=== PATIENT | female | born 1995 ===

== ENCOUNTER 2021-10-23 15:59 | Inpatient (IN) | payer SELFPAY ==
[2021-10-23] MEDS ORDERED: OXYTOCIN DRIP 30,000 MILLIUNITS/500 ML BAG IV ONE ×2 (16:38→17:11)
[2021-10-23] MEDS ORDERED: OXYTOCIN 10 UNIT/1 ML INJ ONE (16:39)
[2021-10-23] MEDS ORDERED: miSOPROStol 200 MCG TAB ONE (17:08)
--- NOTE | 2021-10-23 17:37 | History and Physical Report ---
History of Present Illness Date of examination: 10/23/21 Date of admission: 10/23/21 16:00 Chief complaint: ctx History of present illness: at 39.2wks by LMP c/w [place]/S. Nurse called me stating pt is from [facility]. Pt delivered precipitously by the time I arrived and when I did history and physical, and questioned the pt already delivered, she stated she had her records. Pt denied headache and gave history of laboring at home, denied vag bleed and SROM here at [facility]. pt admitted to movement Past History Past Medical History: other ( records not clear (poor print) ?uterine fiborid and abnormal pap with ASCUS) Past Surgical History: no surgical history Social history: no significant social history - Obstetrical History Expected Date of Delivery: 10/28/21 Actual Gestation: 39 Week(s) 2 Day(s) : 5 Hx # Term Pregnancies: 4 Number of Living Children: 4 Review of Systems All systems: negative (ctx per nurse report) - Vital Signs Vital signs: Vital Signs Pulse Pulse Ox 70 98 10/23/21 16:56 10/23/21 16:56 Temp Pulse Resp BP Pulse Ox 82 97 10/23/21 17:21 10/23/21 17:21 - Physical Exam Breasts: Positive: deferred Cardiovascular: Regular rate Lungs: Positive: Normal air movement Abdomen: Positive: soft Genitourinary (Female): Positive: normal external genitalia Vagina: Positive: normal moisture Uterus: Positive: enlarged (Fundus 2cm above umbilicus) - Obstetrical FHR: other (none) Uterine Contraction Monitor Mode: Palpation Cervical Dilatation: 10 (per nurse in triage) station: delivered in bed immediately Uterine Contraction Pattern: Regular Uterine Contraction Intensity: Moderate Results All other labs normal. Assessment and Plan Precipitous vaginal delivery of term infant, unknown GBS and when records obtained, pt is not from [place] 1. Already admitted to labor and delivery and delivered 2. Will give cytotec with no IV access and grandmultiparous. Please see delivery note 3. All questions encouraged and answered
--- NOTE | 2021-10-23 17:51 | Procedure Note ---
OB Delivery Note - Delivery Date of Delivery: 10/23/21 Surgeon: AMA NGUYỄN Estimated blood loss: 300cc - Vaginal Delivery presentation: vertex Delivery position: OA Delivery monitor: none Route of delivery: Delivery placenta: spontaneous Delivery cord: 3 umbilical vessels Episiotomy: none Delivery laceration: 1st degree (like abraisions x3, not bleeding and pt declined re-approximation) Anesthesia: none Delivery comments: precipitous vaginal delivery of female by nurse at bedside and placenta delivered complete and same with 3vessel cord. Bimanual exam by me showed no cervical or vaginal lacerations except for right and left perirurethral and mid- clitoral abrasions without active bleed that pt declined to get repair. Uterine atony treated with IM pitocin and cytotec 800mcg per rectum. Pt has no IV access and vital signs wnl. Mom and doing well. - Infant A at 1 minute: 8 at 5 minutes: 9 Gender: Male (wt 4460g;)
[2021-10-23] MEDS ORDERED: ACETAMINOPHEN 325 MG TAB PO PRN ×2 (17:52→23:00)
[2021-10-23] MEDS ORDERED: miSOPROStol 200 MCG TAB PR PRN (17:52)
[2021-10-23] MEDS ORDERED: ePHEDrine SULFATE 50 MG/1 ML INJ IV PRN (17:52)
[2021-10-23] MEDS ORDERED: NalbUPHINE 10 MG/1 ML INJ IV PRN (17:52)
[2021-10-23] MEDS ORDERED: TERBUTALINE 1 MG/1 ML INJ SUB-Q PRN (17:52)
[2021-10-23] MEDS ORDERED: OXYTOCIN 10 UNIT/1 ML INJ IM PRN (17:52)
[2021-10-23] MEDS ORDERED: METHYLERGONOVINE MALEATE 0.2 MG/ML VIAL IM PRN (17:52)
[2021-10-23] MEDS ORDERED: MINERAL OIL 30 ML ORAL LIQD PO PRN (17:52)
[2021-10-23] MEDS ORDERED: LIDOCAINE (2%) 20 MG/1 ML VIAL 20 ML MDV INFILTRATI ONE (17:52)
[2021-10-23] MEDS ORDERED: CARBOPROST TROMETHAMINE 250 MCG/1 ML INJ IM PRN (17:52)
[2021-10-23] MEDS ORDERED: LOPERAMIDE 2 MG CAP PO PRN (17:52)
[2021-10-23] MEDS ORDERED: fentaNYL 100 MCG/2 ML INJ IV PRN (17:52)
[2021-10-23] MEDS ORDERED: LACTATED RINGERS 1,000 ML IV SCH (18:00)
[2021-10-23] MEDS ORDERED: OXYTOCIN DRIP 30 UNITS/500 ML BAG IV SCH ×2 (18:00)
[2021-10-23 18:41] LABS: Hematocrit 37.6 % (30.3-42.9); Hemoglobin 12.5 gm/dl (10.1-14.3); Mean Corpuscular HGB Conc 33 % (30-34); Mean Corpuscular Volume 97 fl (79-97); Platelet Count 63 K/mm3 (140-440); Red Blood Count 3.87 M/mm3 (3.65-5.03); Red Cell Distribution Width 13.7 % (13.2-15.2)
[2021-10-23] MEDS ORDERED: PROMETHAZINE 25 MG RECT SUPP PR PRN (23:00)
[2021-10-23] MEDS ORDERED: diphenhydrAMINE 25 MG CAP PO PRN (23:00)
[2021-10-23] MEDS ORDERED: PROMETHAZINE 25 MG TAB PO PRN (23:00)
[2021-10-23] MEDS ORDERED: WITCH HAZEL/ GLYCERIN PAD TP PRN (23:00)
[2021-10-23] MEDS ORDERED: oxyCODONE /ACETAMINOPHEN 5-325MG TAB PO PRN (23:00)
[2021-10-23] MEDS ORDERED: LANOLIN/ZINC/DIMETHICONE (LANSINOH) 7 GM TP PRN (23:00)
[2021-10-23] MEDS ORDERED: ONDANSETRON 4 MG/2 ML INJ IV PRN (23:00)
[2021-10-23] MEDS ORDERED: MAGNESIUM HYDROXIDE (MOM) ORAL LIQD UDC PO PRN (23:00)
[2021-10-23] MEDS ORDERED: BENZOCAINE/MENTHOL 20/0.5% TOP SPRAY 56 GM TP PRN (23:00)
[2021-10-23] MEDS ORDERED: HYDROCORTISONE 25 MG RECTAL SUPP PR PRN (23:00)
[2021-10-23] MEDS: IBUPROFEN 800 MG TAB PO SCH (23:20)
[2021-10-24 05:12] LABS: Basophils % (Auto) 0.2 % (0.0-1.8); Eosinophils # (Auto) 0.1 K/mm3 (0.0-0.4); Eosinophils % (Auto) 1.8 % (0.0-4.3); Hematocrit 32.6 % (30.3-42.9); Hemoglobin 10.9 gm/dl (10.1-14.3); Lymphocytes # (Auto) 2.1 K/mm3 (1.2-5.4); Lymphocytes % (Auto) 25.2 % (13.4-35.0); Mean Corpuscular HGB Conc 34 % (30-34); Mean Corpuscular Volume 97 fl (79-97); Monocytes # (Auto) 0.6 K/mm3 (0.0-0.8); Monocytes % (Auto) 6.9 % (0.0-7.3); Platelet Count 110 K/mm3 (140-440); Red Blood Count 3.38 M/mm3 (3.65-5.03); Red Cell Distribution Width 13.8 % (13.2-15.2)
[2021-10-24] MEDS: IBUPROFEN 800 MG TAB PO SCH (07:27)
[2021-10-24] MEDS ORDERED: PRENATAL VIT27-FE FUMARATE-FOLIC ACID VIT TAB PO SCH (10:00)
--- NOTE | 2021-10-24 13:02 | Progress Note ---
Assessment and Plan O: Platelets increased from 63 to 110, GBS - A:PPD # 1 stable Covid + Thrombocytopenia P: Discharge home today Discharge instructions given Subjective - Subjective Date of service: 10/24/21 Principal diagnosis: , thrombocytopenia Patient reports: appetite normal : doing well Objective - Vital Signs Latest vital signs: Vital Signs Temp Pulse Resp BP BP Pulse Ox Pulse Ox 10/24/21 08:15 97.2 F L 60 18 96/62 99 10/24/21 08:00 98 10/24/21 05:00 98.1 F 68 18 93/51 100 10/24/21 00:22 98.6 F 69 18 10/24/21 00:21 68 96/50 99 10/23/21 23:20 20 10/23/21 20:25 98.2 F 73 18 98/54 99 99 10/23/21 19:56 69 98 10/23/21 19:51 66 98 10/23/21 19:46 82 98 10/23/21 19:41 68 99 10/23/21 19:36 71 100 10/23/21 19:31 77 100 10/23/21 19:26 77 100 10/23/21 19:21 74 99 10/23/21 19:16 75 99 10/23/21 19:11 75 98 10/23/21 19:06 74 98 10/23/21 19:01 63 99 10/23/21 18:56 60 99 10/23/21 18:51 72 99 10/23/21 18:46 68 98 10/23/21 18:41 67 100 10/23/21 18:36 66 98 10/23/21 18:31 67 99 10/23/21 18:26 64 99 10/23/21 18:21 67 99 10/23/21 18:16 67 99 10/23/21 18:11 84 100 10/23/21 18:06 62 98 10/23/21 18:01 68 98 10/23/21 17:56 69 99 10/23/21 17:51 75 98 10/23/21 17:46 71 98 10/23/21 17:41 73 98 10/23/21 17:36 72 98 10/23/21 17:31 71 98 10/23/21 17:26 82 98 10/23/21 17:21 82 97 10/23/21 17:16 72 98 10/23/21 17:11 66 98 10/23/21 17:06 69 99 10/23/21 17:01 79 98 10/23/21 16:56 70 98 Intake and Output 10/23/21 10/24/21 10/24/21 22:59 06:59 14:59 Intake Total 480 600 Output Total 500 Balance -20 600 Intake: Oral 240 600 Intake, Free Water 240 Output: Urine 500 Void 500 Other: Total, Intake Amount 240 240 Total, Output Amount 250 # Voids Void 1 Weight 222 lb Estimated Blood Loss 500 - Exam Breasts: Present: deferred Cardiovascular: Present: Regular rate Lungs: Present: Clear to auscultation Abdomen: Present: soft Vulva: both: normal Uterus: Present: fundal height below umbilicus Deep Tendon Reflex Grade: Normal +2 - Labs Labs: Abnormal lab results 10/23/21 10/24/21 10/24/21 Range/Units 17:00 04:52 09:50 RBC 3.38 L (3.65-5.03) M/mm3 Plt Count 63 L 110 L (140-440) K/mm3 Coronavirus (PCR) Positive A (Negative)
--- NOTE | 2021-10-24 13:03 | Discharge Summary ---
Providers - Providers Date of Admission: 10/23/21 16:00 Date of discharge: 10/24/21 Attending physician: AMA NGUYỄN Primary care physician: CHUCK HONG MD Hospitalization Reason for admission: active labor Delivery: Episiotomy: none Laceration: 1st degree Discharge diagnosis: IUP at term delivered [place] baby: male Condition at discharge: Good Disposition: 01 HOME / SELF CARE / HOMELESS Plan - Provider Discharge Summary Activity: routine, no sex for 6 weeks, no strenuous exercise Diet: routine Instructions: routine Additional instructions: [] Smoking cessation referral if applicable(refer to patient education folder for contact #) [] Refer to [facility]'s [facility] Booklet Call your doctor immediately for: * Fever > 100.5 * Heavy vaginal bleeding ( >1 pad per hour) * Severe persistent headache * Shortness of breath * Reddened, hot, painful area to leg or breast * Drainage or odor from incision. * Keep incision clean and dry at all times and follow doctor's instructions regarding bathing/showering - Follow up plan Follow up: PRIMARY CAREMD [Primary Care Provider] - 6 Weeks
[2021-10-24 16:05] VITALS: BP 99/60
[2021-10-24] MEDS ORDERED: TETANUS,DIPH,PERTUSS(ACELL) VACCINE 0.5 ML SYRINGE IM ONE (17:10)
== END 2021-10-24 20:00 | disposition home or self-care (01) | DRG 805 ==
LOC: TRG 15:59 → APU 15:59 → LD 16:00 → TRG 17:09 → OB 20:37
PROVIDERS: ADMIT Obstetrics & Gynecology; ATTEND Obstetrics & Gynecology
PROC: 10E0XZZ Delivery of Products of Conception, External Approach (ICD-10-PCS; principal; 2021-10-23)
PROC: 0HQ9XZZ Repair Perineum Skin, External Approach (ICD-10-PCS; 2021-10-23)
PROC: 3E0234Z Introduction of Serum, Toxoid and Vaccine into Muscle, Percutaneous Approach (ICD-10-PCS; 2021-10-24)
DX: O62.3 Precipitate labor (principal); U07.1 COVID-19; Z37.0 Single live birth; O98.52 Other viral diseases complicating childbirth; Z3A.39 39 weeks gestation of pregnancy; Z23 Encounter for immunization; O70.0 First degree perineal laceration during delivery; O75.89 Other specified complications of labor and delivery; O72.3 Postpartum coagulation defects; D69.6 Thrombocytopenia, unspecified
CPT/HCPCS: 36415; 85025; 85027; 86592; 86850; 86900; 86901; 90471; 90715; G0378; J2590; U0003